=== PATIENT | male | born 1950 | race Two or more races ===

== ENCOUNTER → 2017-03-04 | Outpatient (CLI) | payer MEDICARE, OTHER ==
[~2017-03-04] MED LIST: RISP2L PO
== END | disposition home or self-care (01) ==
LOC: RADMN 12:19
PROVIDERS: ATTEND Specialist
DX: M54.2 Cervicalgia (principal); M21.942 Unspecified acquired deformity of hand, left hand; M18.12 Unilateral primary osteoarthritis of first carpometacarpal joint, left hand; Z98.890 Other specified postprocedural states; M19.042 Primary osteoarthritis, left hand
CPT/HCPCS: 72141; 73221